=== PATIENT | female | born 2000 | race American Indian/Alaskan Native ===

== ENCOUNTER 2019-03-02 12:39 | Outpatient (CLI) | payer MEDICAID ==
[2019-03-02 13:07] VITALS: BP 112/59
== END 2019-03-02 13:53 | disposition home or self-care (01) ==
LOC: TRG 12:39
PROVIDERS: ATTEND Obstetrics & Gynecology
DX: O47.03 False labor before 37 completed weeks of gestation, third trimester (principal); Z3A.31 31 weeks gestation of pregnancy
CPT/HCPCS: 59025

== ENCOUNTER 2019-05-03 00:52 | Inpatient (IN) | payer MEDICAID ==
[2019-05-03] MEDS ORDERED: AMPICILLIN/NS 2 GM/100 ML 2 GM/100 ML BAG IV ONE (01:53)
[2019-05-03] MEDS ORDERED: NALOXONE 0.4 MG/1 ML INJ IV PRN (01:53)
[2019-05-03] MEDS ORDERED: LIDOCAINE (2%) 20 MG/1 ML VIAL 20 ML MDV INFILTRATI ONE (01:53)
[2019-05-03] MEDS ORDERED: TERBUTALINE 1 MG/1 ML INJ IVP PRN (01:53)
[2019-05-03] MEDS ORDERED: TERBUTALINE 1 MG/1 ML INJ SUB-Q PRN (01:53)
[2019-05-03] MEDS ORDERED: fentaNYL 100 MCG/2 ML INJ IV PRN (01:53)
[2019-05-03] MEDS ORDERED: ONDANSETRON 4 MG/2 ML INJ IV PRN ×2 (01:53→07:30)
[2019-05-03] MEDS ORDERED: MINERAL OIL 30 ML ORAL LIQD PO PRN (01:53)
[2019-05-03] MEDS ORDERED: PROMETHAZINE 25 MG TAB PO PRN ×2 (01:53→07:30)
[2019-05-03] MEDS ORDERED: ePHEDrine SULFATE 50 MG/1 ML INJ IV PRN (01:53)
--- NOTE | 2019-05-03 01:53 | History and Physical Report ---
History of Present Illness Date of examination: 05/03/19 Date of admission: 05/03/19 Chief complaint: Contractions History of present illness: Pt is a 19 yo at 40.3 weeks EGA who presents with regular uterine contractions. She reports positive movement and denies LOF. She has received care with [facility]. She has had an uncomplicated . She is Rubella non-immune and GBS positive. Past History Past Medical History: no pertinent history Past Surgical History: no surgical history Family/Genetic History: hypertension, cancer (breast, renal carcinoma) - Obstetrical History Expected Date of Delivery: 04/30/19 Actual Gestation: 40 Week(s) 3 Day(s) : 2 Para: 1 Hx # Term Pregnancies: 1 Number of Living Children: 1 Medications and Allergies Allergies Allergy/AdvReac Type Severity Reaction Status Date / Time No Known Allergies Allergy Verified 06/13/14 15:10 Home Medications Medication Instructions Recorded Confirmed Last Taken Type Pnv95/Ferrous Fumarate/FA 1 each PO QDAY 03/11/14 06/14/14 06/06/14 10:00 History [ Vitamins] 1 tab Ibuprofen [Motrin 600 MG tab] 600 mg PO Q6H #30 tablet 06/15/14 Unknown Rx oxyCODONE /ACETAMINOPHEN [Percocet 2 tab PO Q4H PRN #30 tablet 06/15/14 Unknown Rx 5/325 mg] Review of Systems All systems: negative Genitourinary: contractions, no leakage of fluid, no genital sores - Physical Exam Lungs: Positive: Normal air movement Abdomen: Positive: soft Genitourinary (Female): Positive: normal external genitalia Vagina: Positive: normal moisture Uterus: Positive: enlarged (gravid) Anus/Rectum: Positive: normal perianal skin Extremities: Positive: normal - Obstetrical FHR: category 1 Uterine Contraction Monitor Mode: External Cervical Dilatation: 7 Cervical Effacement Percentage: 80 Uterine Contraction Pattern: Regular Uterine Tone Measurement Phase: Contraction Uterine Contraction Intensity: Strong/Firm Results All other labs normal. Assessment and Plan A: 19 yo at 40.3 weeks EGA Active labor Membranes intact GBS positive P: Admit for labor GBS prophylaxis Pain relief as requested Anticipate
[2019-05-03] MEDS ORDERED: LACTATED RINGERS 1,000 ML IV SCH (02:00)
[2019-05-03] MEDS ORDERED: OXYTOCIN DRIP 30 UNITS/500 ML BAG IV SCH (02:00)
[2019-05-03] MEDS ORDERED: OXYTOCIN 20 UNIT/1000ML DRIP 20 UNITS/1,000 ML BAG IV SCH (02:00)
[2019-05-03 02:27] LABS: Hematocrit 33.6 % (30.3-42.9); Hemoglobin 11.1 gm/dl (10.1-14.3); Mean Corpuscular HGB Conc 33 % (30-34); Mean Corpuscular Volume 87 fl (79-97); Platelet Count 272 K/mm3 (140-440); Red Blood Count 3.87 M/mm3 (3.65-5.03); Red Cell Distribution Width 13.7 % (13.2-15.2)
[2019-05-03] MEDS ORDERED: AMPICILLIN/NS 1 GM/50 ML 1 GM/50 ML BAG IV SCH (05:55)
--- NOTE | 2019-05-03 07:07 | Procedure Note ---
OB Delivery Note - Delivery Date of Delivery: 05/03/19 Surgeon: BRITTA MALDONADO ([facility]) Estimated blood loss: 100cc - Vaginal Delivery presentation: vertex Delivery position: OA Delivery induction: none Delivery augmentation: pitocin Delivery monitor: external FHT, external uterine Route of delivery: Delivery placenta: spontaneous Delivery cord: nuchal cord (and body cord x1), 3 umbilical vessels Episiotomy: none Delivery laceration: none Anesthesia: none Delivery comments: Pt noted to have anterior lip. AROM clear fluid and cunningham progression to over intact perineum of vigorous male infant. Head delivered OA, restituted ROT. Somersaulted through nuchal cord x1 and body cord x1. Apgars 9/10. Delayed cord clamping. Placenta delivered spontaneously and intact. EBL 100cc. No lacerations noted. Mother and bonding well. - Infant A at 1 minute: 9 at 5 minutes: 10 Gender: Male
[2019-05-03] MEDS ORDERED: ACETAMINOPHEN 325 MG TAB PO PRN (07:30)
[2019-05-03] MEDS ORDERED: WITCH HAZEL/ GLYCERIN PAD TP PRN (07:30)
[2019-05-03] MEDS ORDERED: MAGNESIUM HYDROXIDE (MOM) ORAL LIQD UDC PO PRN (07:30)
[2019-05-03] MEDS ORDERED: PROMETHAZINE 25 MG RECT SUPP PR PRN (07:30)
[2019-05-03] MEDS ORDERED: LANOLIN/ZINC/DIMETHICONE (LANSINOH) 7 GM TP PRN (07:30)
[2019-05-03] MEDS ORDERED: diphenhydrAMINE 25 MG CAP PO PRN (07:30)
[2019-05-03] MEDS: IBUPROFEN 600 MG TAB PO SCH ×3 (10:25→21:52)
[2019-05-03] MEDS: FERROUS SULFATE 325 MG TAB PO SCH ×2 (10:25→22:00)
[2019-05-03 19:24] LABS: Hematocrit 32.4 % (30.3-42.9); Hemoglobin 10.5 gm/dl (10.1-14.3)
[2019-05-04] MEDS: IBUPROFEN 600 MG TAB PO SCH ×4 (03:12→21:48)
[2019-05-04] MEDS: FERROUS SULFATE 325 MG TAB PO SCH ×2 (09:54→21:48)
--- NOTE | 2019-05-04 13:10 | Progress Note ---
Assessment and Plan PPD1 s/p VSS Mild anemia- ferrous sulfate Routine pp care D/c to home on PPD2 Subjective - Subjective Date of service: 05/04/19 Principal diagnosis: s/p Interval history: Pt is a 19 yo at 40.3 weeks EGA who presents with regular uterine contractions. She reports positive movement and denies LOF. She has received care with [facility]. She has had an uncomplicated . She is Rubella non-immune and GBS positive. Patient reports: appetite normal, voiding normally, pain well controlled, ambulating normally : doing well, nursing well Objective - Vital Signs Latest vital signs: Vital Signs Temp Pulse Resp BP BP Pulse Ox 05/04/19 07:40 98.6 F 60 18 98/60 99 05/04/19 00:20 97.9 F 60 18 110/64 99 05/03/19 22:52 18 05/03/19 16:44 97.8 F 60 18 94/58 99 Intake and Output 05/03/19 05/04/19 05/04/19 23:59 07:59 15:59 Intake Total 240 Output Total 250 Balance -10 Intake: Oral 240 Output: Urine 250 Void 250 Other: Total, Intake Amount 240 Total, Output Amount 250 # Voids Void 2 # Bowel Movements 2 - Exam Breasts: Present: Lungs: Present: Normal air movement Abdomen: Present: soft Uterus: Present: firm, fundal height below umbilicus Extremities: Present: normal
--- NOTE | 2019-05-04 13:12 | Discharge Summary ---
Providers - Providers Date of Admission: 05/03/19 02:21 Date of discharge: 05/05/19 Attending physician: ROLLY GUADALUPE MD Primary care physician: ROLLY GUADALUPE MD Hospitalization Reason for admission: active labor Delivery: Episiotomy: none Laceration: none Other procedures: none complications: none Discharge diagnosis: IUP at term delivered baby: male Hospital course: PP course uneventful Condition at discharge: Good Disposition: DC-01 TO HOME OR SELFCARE Plan - Discharge Medications Prescriptions: Ibuprofen [Motrin] 600 mg PO Q6H PRN #60 tablet PRN Reason: Pain - Provider Discharge Summary Activity: routine, no sex for 6 weeks, no heavy lifting 4 weeks, no strenuous exercise Diet: routine Instructions: routine Additional instructions: [] Smoking cessation referral if applicable(refer to patient education folder for contact #) [] Refer to [facility]'s [facility] Booklet Call your doctor immediately for: * Fever > 100.5 * Heavy vaginal bleeding ( >1 pad per hour) * Severe persistent headache * Shortness of breath * Reddened, hot, painful area to leg or breast * Drainage or odor from incision. * Keep incision clean and dry at all times and follow doctor's instructions regarding bathing/showering - Follow up plan Follow up: BRITTA MALDONADO CNM [Advanced Practice Nurse] - 14 Days (Please call [facility] to schedule appointment.)
[2019-05-05] MEDS: IBUPROFEN 600 MG TAB PO SCH ×2 (02:00→11:43)
[2019-05-05] MEDS: FERROUS SULFATE 325 MG TAB PO SCH (11:42)
[2019-05-05] MEDS ORDERED: MEASLES, MUMPS & RUBELLA 12,500 UNIT/0.5 ML VACCINE SUB-Q ONE (14:30)
[2019-05-05 14:57] VITALS: BP 117/77
== END 2019-05-05 16:00 | disposition home or self-care (01) | DRG 775 ==
LOC: TRG 00:52 → LD 02:21 → OB 09:57
PROVIDERS: ADMIT Obstetrics & Gynecology; ATTEND Obstetrics & Gynecology
PROC: 10E0XZZ Delivery of Products of Conception, External Approach (ICD-10-PCS; principal; 2019-05-03)
PROC: 10907ZC Drainage of Amniotic Fluid, Therapeutic from Products of Conception, Via Natural or Artificial Opening (ICD-10-PCS; 2019-05-03)
PROC: 3E0234Z Introduction of Serum, Toxoid and Vaccine into Muscle, Percutaneous Approach (ICD-10-PCS; 2019-05-05)
DX: O69.81X0 Labor and delivery complicated by cord around neck, without compression, not applicable or unspecified (principal); O99.824 Streptococcus B carrier state complicating childbirth; O99.02 Anemia complicating childbirth; Z3A.40 40 weeks gestation of pregnancy; Z37.0 Single live birth; Z23 Encounter for immunization; Z82.49 Family history of ischemic heart disease and other diseases of the circulatory system; Z80.3 Family history of malignant neoplasm of breast; Z80.51 Family history of malignant neoplasm of kidney; D64.9 Anemia, unspecified
CPT/HCPCS: 36415; 85014; 85018; 85027; 86850; 86900; 86901; 90707; G0378; A6250; J0290; J2590; J3010; J7120

== ENCOUNTER 2019-06-06 08:28 | Outpatient (CLI) | payer MEDICAID ==
--- NOTE | 2019-06-06 09:26 | Ultrasound Report ---
LIMITED RIGHT BREAST Ultrasound HISTORY: RIGHT BREAST ABSCESS. 19-year-old patient who is breast-feeding and has noticed a palpable tender lump in her right breast for several weeks. There is a family history of breast cancer in her mother at age 49. She stated that genetic testing of her mother was negative. TECHNIQUE: Targeted ultrasound of the right axillary tail.. COMPARISON: None. FINDINGS: On physical exam, there is a palpable tender oval mass in the right axillary tail. It is im mediately visible upon inspection and it measures approximately 6 x 5 cm. Ultrasound examination demo nstrates an echo pattern that is identical to the rest of the breast and the mass communicates with n ormal appearing breast tissue in the upper outer quadrant. No abscess or fluid collection identified. IMPRESSION: 1. A 6 x 5 cm tender palpable mass of the axillary tail of the right breast. I suspect that this is n ormal breast tissue which as been hyperstimulated hormonally. However, recommend ultrasound-guided ne edle biopsy to exclude malignancy. 2. No abscess. I discussed the findings and the recommendation for an ultrasound-guided needle biopsy of the right b reast with the patient at the time of the exam. BI-RADS Category 4: Suspicious Signer Name: Farshad Fraser MD Signed: 06/06/2019 9:21 AM Workstation Name: [id number]
== END 2019-06-06 08:29 | disposition home or self-care (01) ==
LOC: SPVWC 08:28
PROVIDERS: ATTEND Obstetrics & Gynecology
DX: N63.31 Unspecified lump in axillary tail of the right breast (principal)

== ENCOUNTER 2019-06-13 14:46 | Outpatient (CLI) | payer MEDICAID ==
--- NOTE | 2019-06-13 15:56 | Ultrasound Report ---
ULTRASOUND-GUIDED NEEDLE CORE BIOPSY RIGHT BREAST WITH CLIP PLACEMENT CLINICAL: 19-year-old post patient with a palpable 6 cm right breast mass at 10:00 12 cm from the nipple. FINDINGS: The procedure was explained to the patient and informed consent was obtained. Ultrasound demonstrated the previously identified mass.. I marked the breast with a felt tip marker and a timeout was called. The skin was prepped with Chloro -Prep and anesthetized with 1% lidocaine. Needle core biopsy was performed through small dermatotomy using ultrasound guidance, 2% lidocaine wi th epinephrine for deep anesthesia and a 14-gauge Achieve biopsy device. 3 cores were obtained and pl aced in formalin. A clip was deployed within the mass. The patient tolerated the procedure well and there were no apparent complications. Hemostasis was ach ieved with minimal effort and a sterile dressing was applied. A post procedure mammogram was not performed. She left the department in good condition and was given instructions for wound care and follow-up. IMPRESSION: Uncomplicated ultrasound guided needle core biopsy with clip placement right breast. Signer Name: Farshad Fraser MD Signed: 06/13/2019 3:52 PM Workstation Name: [id number]
== END 2019-06-13 14:47 | disposition home or self-care (01) ==
LOC: SPVWC 14:46
PROVIDERS: ATTEND Obstetrics & Gynecology
DX: N63.11 Unspecified lump in the right breast, upper outer quadrant (principal); D24.1 Benign neoplasm of right breast; Z79.899 Other long term (current) drug therapy; Z80.8 Family history of malignant neoplasm of other organs or systems; Z98.891 History of uterine scar from previous surgery; Z82.49 Family history of ischemic heart disease and other diseases of the circulatory system
CPT/HCPCS: 88305